=== PATIENT | female | born 1965 | race Caucasian/White ===

== ENCOUNTER → 2018-01-06 15:00 | Outpatient (CLI) | payer OTHER, SELFPAY | PROVIDERS: Family Provider Family Medicine; PCP Family Medicine | DX: Z23 Encounter for immunization (principal) | CPT/HCPCS: 90471; 90686 ==

== ENCOUNTER → 2018-01-27 17:48 | Outpatient (CLI) | payer OTHER, SELFPAY ==
[2018-01-27 20:04] LABS: Cancer Antigen 125 8 U/mL (0-35)
[2018-01-29 13:08] LABS: QuantiFERON TB NEGATIVE (Negative)
== END ==
PROVIDERS: Family Provider Family Medicine; PCP Family Medicine; Visit Provider Obstetrics & Gynecology
DX: N83.202 Unspecified ovarian cyst, left side (principal)
CPT/HCPCS: 36415; 86304; 86480

== ENCOUNTER 2018-01-31 08:49 | Day surgery (SDC) | payer OTHER, SELFPAY ==
[2018-01-31] VITALS (10 sets, daily range): BP systolic 108–126; BP diastolic 62–74; PULSE 16–94; RESP 9–77; TEMP 36.2–36.8; O2SAT 97–100; BMI 27.6
--- NOTE | 2018-01-31 | PATH_ITS ---
[facility] Accession Number: [id number] . 01 Material submitted: . PART A: LEFT FALLOPIAN TUBE AND OVARY PART B: UTERUS, RIGHT FALLOPIAN TUBE AND OVARY . 02 Diagnosis: A. Left Fallopian Tube and Ovary, Salpingo-oophorectomy: 1. Serous cystadenoma. 2. Paratubal cyst. 3. No evidence of intraepithelial neoplasia, carcinoma, or borderline tumor. . B. Uterus, Right Fallopian Tube and Ovary, Hysterctomy, Salpingo-oophorectomy: 1. Leiomyoma. 2. Adenomyosis. 3. Inactive/noncycling endometrium with no evidence of hyperplasia. 4. Paratubal cyst. 5. Ovary with no diagnostic abnormality. 6. No evidence of neoplasia. [facility]/02/05/2018 . 02 Electronically signed: . Jodi Jorgensen MD, Pathologist NPI- [id number] . 01 Gross description: . (A) Received in formalin, labeled left fallopian tube + ovary, is an opened ovarian cyst (5.2 x 4.5 x 4.2 cm) with an attached fimbriated fallopian tube (length-3.1 cm, diameter-0.3 cm). The cyst has schwarz-pink smooth shiny serosa. The lining is smooth and flat with no excrescences identified. A scant amount of normal ovarian parenchyma is identified. The fallopian tube has roth smooth shiny serosa and roth unremarkable lumen. Section code: (A1-A2) ovarian cyst, provider service representative serial sections; (A2) fallopian tube, serially sectioned; (A3) fimbria, bivalved. Note: The fallopian tube is entirely submitted. (B) Received in formalin, labeled uterus, right fallopian tube plus ovary, is a distorted upper uterine body (21 grams, 4.5 x 3.5 x 2.4 cm), a detached ovary (2.5 x 1.1 x 0.6 cm), and a detached fimbriated fallopian tube (length-4.1 cm, diameter-0.3 cm). The cervix is absent. The specimen cannot be oriented and the endometrium and myometrium cannot be grossly measured. The parenchyma is roth and contains multiple solid firm white whorled well-circumscribed homogenous nodules (0.1 x 0.1 x 0.1 cm-1.2 x 0.8 x 0.5 cm). The serosa is pale roth smooth and shiny. The ovary has roth-yellow shiny bosselated serosa and roth-white solid firm parenchyma with corpus albicans and corpus luteum identified. The fallopian tube has roth-pink smooth shiny serosa and a roth unremarkable lumen. Section code: (B1-B3) uterine parenchyma, provider service representative; (B4) ovary, provider service representative serial sections; (B5) fallopian tube, provider service representative serial sections; (B6) fimbria, bivalved, entirely submitted. . Note: Per the requisition, this is a split sampling with a portion of the specimen sent to cytology for analysis. ([id number]) /MRV . 02 Pathologist provided ICD-10: D27.1, N83.9, N80.0, D25.9 . 02 CPT . 589730, 711511 Specimen Comment: A duplicate report has been generated due to demographic updates. Performed at: 01 [facility] [address], [place], [place] [id number] MD Brett Swartz MD Phone: [phone] Performed at: 02 [facility] [address] [place], [place] [id number] MD Jodi Jorgensen MD Phone: [phone]
--- NOTE | 2018-01-31 | PATH_ITS ---
Note [facility] Accession Number: [id number] TESTS RESULT FLAG UNITS REF RANGE LAB Clinician Provided Cytology Information No. of containers..01 ThinPrep Vial 01 L OVARIAN CYST DIAGNOSIS: LEFT OVARIAN CYST: NEGATIVE FOR MALIGNANT CELLS. Pathologist ICD10: 02 N83.202 Specimen leaked in transit Jodi Jorgensen MD, Pathologist NPI- [id number] Brennen Bishop, Fiber Designer ([facility]) 01 10 ML, BROWN, CLOUDY /LCS FLAG LEGEND: L-Low Normal,H-High Normal,LL-Alert Low,HH-Alert High <-Panic Low,>-Panic High,A-Abnormal,AA-Critical Abnormal Performed at: 01 =Z [facility] [address], [place] [address] Brett Swartz MD, 02 [facility] [address] [place] [phone] Jodi Jorgensen MD, Performed at: 01 [facility] [address], [place], [place] [id number] MD Brett Swartz MD Phone: [phone]
--- NOTE | 2018-01-31 09:51 | PM.PREOP ---
Pre-operative Note Interval Note Pre-op Check: Yes History & Physical Reviewed by Physician Changes: No
[2018-01-31] MEDS: LACTATED RINGERS 1,000 ML 100 ML IV ×2 (09:55→12:33)
[2018-01-31] MEDS: SCOPOLAMINE 1 PATCH TOP (10:24)
--- NOTE | 2018-01-31 10:57 | SUR.OPER ---
Lithotomy on padded OR bed. Purty Rock Pad Positioner under torso. Head on pillow, arms padded and tucked at sides. Legs secured in padded yellow fins stirrups.
[2018-01-31] MEDS: BUPIVACAINE 0.5% W/ EPI (PF) VIAL 30 ML INJ (11:17)
[2018-01-31] MEDS: ACETAMINOPHEN IV 1,000 MG/100 ML VIAL 400 MG IV (11:25)
[2018-01-31] MEDS: ROPIVACAINE 0.2% PF 2 MG/ML 10ML AMP 10 ML INJ (11:28)
[2018-01-31] MEDS: fentaNYL 100 MCG/2 ML INJ 50 MCG IV (12:20)
[2018-01-31] MEDS: OXYCODONE IR 5 MG TABLET PO (13:55)
--- NOTE | 2018-02-02 18:18 | P.OP_ITS ---
Operative Date/Time/Diagnoses Date of procedure: 01/31/18 Time of procedure: 11:15 Pre-op diagnosis: Left ovarian mass History of breast cancer Postmenopausal bleeding Post-op diagnosis: same Procedure: Procedures Operation Date: 01/31/18 10:00 Actual Procedures Side Surgeon anat DAILEY w/Eliza S&O Not Applicable Kerline Tate MD Indications: Postmenopausal bleeding Left ovarian mass History of breast cancer Surgeon: Kerline Tate Export Specialist: Reji Colon Anesthesia Type: General Operative Notes Findings: 6 week size anteverted uterus 9 cm left ovarian cyst Normal tubes Normal right ovary Normal appendix Normal liver and gallbladder Closure Type: primary Specimen(s): left tube & ovary, right tube & ovary, uterus and other (Fluid from left ovary) Applied: catheter (Removed at the end of the case) Estimated blood loss (mL): 5 Blood products transfused: none Procedure in detail: The patient was taken to the operating room where she was placed in the dorsal supine position. After adequate general endotracheal anesthesia was achieved she was placed in the dorsal lithotomy position, and prepped and draped in the usual sterile fashion. A time-out was performed. A bivalve speculum was placed into the vagina, and the anterior lip of the cervix was grasped with a single-tooth tenaculum. The cervical os was sequentially dilated until the Zumi uterine manipulator could pass easily into the endometrial cavity. The single-tooth tenaculum was removed from the anterior lip of the cervix. The bivalve speculum was removed from the vagina. Attention was then turned to the abdomen where 6 cc of 0.5% Marcaine with epinephrine were injected in the umbilical fold. A 5 mm incision was made. A Veress needle was placed into the peritoneal cavity, and its placement confirmed by aspiration and drop test. The Veress needle was removed. A 5 mm trocar was placed without difficulty. Initial inspection of the pelvis and abdomen revealed the findings noted above. 2 other 5 mm incisions were placed midway between the pubic symphysis and umbilicus, 4 cm lateral to the midline, after 6 cc of 0.5% Marcaine with epinephrine were injected. 5 mm trocars were placed under direct visualization. The right tube and ovary were grasped with an atraumatic grasper. Using the PlasmaKinetic with settings at 40 w, the infundibulopelvic ligament on the right side was cauterized and cut with PlasmaKinetic. As was the round ligament and broad ligament all the way down to the level of the uterine arteries. The bladder flap was created using the PlasmaKinetic with cautery and cut penitentiary across. The uterine arteries were extensively cauterized on the right side. All of this was repeated on the left side except the left tube and ovary were removed 1st and placed into the cul-de- sac. The remainder of the procedure was similar to the right side. The remainder of the bladder flap was created using the PlasmaKinetic. The bladder was taken down off the lower uterine segment and cervix. The left tube and ovary were removed from the pelvis and placed up in the right lower quadrant. The Kimberly loop was placed over the uterus and right tube and ovary and cinched down 2 cm above the uterosacral ligaments. The Zumi uterine manipulator was removed and the moistened sponge stick was placed into the vagina. The uterus was amputated from the cervix using the Kimberly loop. There was a small amount of bleeding noted from the posterior edge and this was cauterized with the PlasmaKinetic for hemostasis. The PlasmaKinetic was used to cauterize the endocervical canal. 6 cc of 0.5% Marcaine with epinephrine were injected through the previous Pfannenstiel incision. A 1 cm incision was made. The 12 mm trocar was placed under direct visualization. A small bag was placed through the suprapubic trocar. The left tube and ovary were placed into the bag. The trocar was removed and the edges of the bag were brought up through the skin. Using a 20 gauge spinal needle, approximately 120 cc of clear yellow fluid were removed from the ovary while in the bag. The bag was then removed with the deflated ovary inside. Care was taken not to spill any fluid. A large endobag was then placed through the suprapubic incision. The uterus and right tube and ovary were placed into the bag. The fascial incision was extended with a Jake. The bag edges were brought up through the skin. An Ricardo was placed into the bag. The uterus was morcellated in approximately 5 pieces. The bag was removed from the suprapubic incision. The pelvis was inspected and there was no bleeding noted. 20 cc of 0.2% ropivacaine was placed over the pedicles. The instruments were removed from the abdomen. The CO2 was allowed to escape. The suprapubic incision was closed with 0 Vicryl on the fascia. 3 0 Vicryl was used in the subcutaneous layer. All of the incisions were closed with 4 0 undyed Vicryl in a subcuticular fashion. Steri- Strips, 2 x 2, and op site were placed. The moistened sponge stick was removed from the vagina. Sponge, lap, and instrument counts were correct x2. The patient tolerated the procedure well, and was taken to PACU in stable condition. Post-operative Condition: stable Disposition: PACU Plan for aftercare: Home after recovery
== END 2018-01-31 14:23 | disposition home or self-care (01) ==
PROVIDERS: PCP Family Medicine; Visit Provider Obstetrics & Gynecology
PROC: 0UT94ZL Resection of Uterus, Supracervical, Percutaneous Endoscopic Approach (ICD-10-PCS; CPT 58542; principal; 2018-01-31 10:00)
DX: N95.0 Postmenopausal bleeding (principal); N83.202 Unspecified ovarian cyst, left side; Z85.3 Personal history of malignant neoplasm of breast
CPT/HCPCS: 58542; J0131; J0330; J1100; J1885; J2250; J2405; J2704; J2795; J3010